=== PATIENT | male | born 1980 | race Caucasian/White ===

== ENCOUNTER 2021-04-22 08:05 | Emergency (ER) | payer OTHER ==
[~2021-04-22] VITALS: Ht 185.4 cm; Wt 111.4 kg
[2021-04-22 09:14] LABS: BASO % 0.6 % (0.0-2.0); EOS # 0.2 (0.0-0.7); EOS % 2.9 % (0-4.0); GRAN # 3.7 (1.4-6.5); GRAN % 70.6 % (42.2-75.2); HEMATOCRIT 42.3 % (42.0-52.0); HEMOGLOBIN 14.3 g/dl (13.5-18.0); LYMPH # 1.1 (1.2-3.4); LYMPH % 20.3 % (20.0-51.0); MEAN CELL VOLUME 84 fl (80.0-100.0); MEAN CORPUSCULAR HEMOGLOBIN 29 pg (27.0-31.0); MEAN CORPUSCULAR HGB CONC 34 g/dl (33.0-37.0); MEAN PLATELET VOLUME 9.5 fl (7.4-10.4); MONO # 0.3 (0.1-0.6); MONO % 5.4 % (1.7-9.3); PLATELET COUNT 231 K/mm3 (130-400); RED BLOOD COUNT 5.02 M/mm3 (4.20-5.60); REDCELL DISTRIBUTION WIDTH-CV 12.5 % (11.5-14.5)
[2021-04-22 09:24] LABS: ALANINE AMINOTRANSFERASE 28 U/L (4-49); ALBUMIN 4.6 gm/dL (3.5-5.0); ALKALINE PHOSPHATASE 60 U/L (50-136); ANION GAP 10 mmol/L (7-16); AST,SGOT 34 U/L (15-37); BILIRUBIN,TOTAL 0.9 mg/dL (0.0-1.0); BLOOD UREA NITROGEN 14 mg/dL (9-20); CALCIUM 9.1 mg/dL (8.4-10.2); CARBON DIOXIDE 25 mmol/L (22-30); CHLORIDE 104 mmol/L (98-107); CREATININE, serum 0.94 (0.66-1.25); GLUCOSE 101 mg/dL (74-106); POTASSIUM 3.8 mmol/L (3.4-5.0); SODIUM 139 mmol/L (137-145); TOTAL PROTEIN 7.5 gm/dL (6.4-8.2)
[2021-04-22 09:35] LABS: CREATINE KINASE 243 U/L (55-170)
[2021-04-22 09:36] LABS: TROPONIN-I < 0.012 ng/mL (0.000-0.035)
[2021-04-22 10:28] LABS: TSH w REFLEX 1.246 uIU/mL (0.350-4.940)
[2021-04-22 11:00] VITALS: BP 135/62; PULSE 61; TEMP 97.9
== END 2021-04-22 11:00 | disposition home or self-care (01) ==
LOC: COL.ER 08:05
PROVIDERS: Emergency Medicine
DX: R25.1 Tremor, unspecified (principal); R20.2 Paresthesia of skin; R74.8 Abnormal levels of other serum enzymes
CPT/HCPCS: J7030